=== PATIENT | female | born 1970 | race Caucasian/White ===

== ENCOUNTER → 2016-12-21 | Day surgery (SDC) | payer OTHER ==
[~2016-12-21] VITALS: Ht 160 cm; Wt 108.9 kg
--- NOTE | 2016-12-21 14:17 | Operative Report ---
Operative/Inv Procedure Report Surgery Date: 12/21/16 Name of Procedure: Hysteroscopy, dilation curettage, attempt at NovaSure endometrial ablation, ablation aborted. Pre-Operative Diagnosis: Abnormal uterine bleeding Post-Operative Diagnosis: Same and enlarged uterine cavity Estimated Blood Loss: scant Surgeon/Milking Worker: ERIN VIRK DO Anesthesia: laryngeal mask airway Urine Output: na Drains: None Specimens: EMC , ECC Complications: None Condition: Good Operative Indication: This patient is a 46-year-old 4 para 1 who presents with menorrhagia. She desires endometrial ablation. She notes that she does not tolerate hormones well and had declined Mirena IUD. She had seen me roughly 1 year ago and had a benign endometrial biopsy. I performed an endometrial biopsy however my tissue sample was inadequate. I discussed with the patient performing a D&C prior to her ablation versus performing D&C at time of her ablation additional endometrial sampling and she agreed to do the latter. She was made aware that if atypical hyperplasia or cancerous cells were noted she would need to follow- up for hysterectomy. She also is informed of the risk of procedure including risk of bleeding, infection, perforation, need for additional procedures complication occur, incomplete procedure, complication of procedure for which additional surgeries were necessary. She stated verbal understanding of all the above. Operative/Procedure Note Note: The patient was taken to the operating room where anesthesia was obtained without difficulty. The patient was placed in the dorsal lithotomy position and examined under anesthesia. She had an enlarged uterus approximately 12 weeks on bimanual exam. No adnexal masses were palpable. She was then prepared and draped in usual sterile fashion. Her cervix was noted to be deep within the vagina. Speculum was placed inside the vagina. It was necessary to grab the anterior lip of the cervix with a tenaculum and bring it forward in order to fully visualize her cervix. Cervical length was determined to be 4 cm. Cervix was then progressively dilated to 21 Indonesian with Javid dilators. She was noted to have a very anteverted, anteflexed uterus with an endocervical canal that was tortuous anteriorly. Hysteroscopy was then performed using normal saline as distention media. The patient was noted to have a very wide cavity uterine cavity. She thin endometrium. Should normal-appearing bilateral tubal ostia. Hysteroscope was removed and a uterine sound length was obtained and was 14 cm. NovaSure device was inserted and opened at the fundus. CO2 perforation test was performed and the patient did not pass. I attempted to reseal her cervix and again attempted the CO2 perforation test and she did not pass. NovaSure device was removed and I again perform hysteroscopy to ensure that no uterine perforation occurred. She had a normal-appearing endometrial cavity without evidence of perforation. Hysteroscope was again removed and NovaSure device was again inserted and seated within the uterine cavity. Uterine length was over 6.5 cm and uterine width was 4.7 cm. And again she did not pass the uterine perforation test. Suture was aborted at this time. I again performed another hysteroscopy just to confirm that no perforation had occurred. Hysteroscopy was unremarkable. She had an intact endometrial cavity. I presume that she did not pass the CO2 perforation test either due to a leak due to cervical over dilation or the size of her uterine cavity. All insurance removed from the patient's uterus cervix vagina. Hemostasis of tenaculum sites was obtained with silver nitrate. The patient was taken to the recovery room in stable condition and all sponge lap needle counts were correct 2. I informed the patient's daughter that I was unable to perform the NovaSure procedure and dilator informed the patient of my findings. She will follow-up in the office in 2 weeks. Strict discharge precautions were advised.
== END ==
LOC: STS 01:07
DX: N92.0 Excessive and frequent menstruation with regular cycle (principal); N85.2 Hypertrophy of uterus; Z53.8 Procedure and treatment not carried out for other reasons; E66.9 Obesity, unspecified; Z68.41 Body mass index [BMI] 40.0-44.9, adult; K51.90 Ulcerative colitis, unspecified, without complications
CPT/HCPCS: 36415; 81025; J0131; J1100; J1885; J2250; J2405